=== PATIENT | male | born 1975 | race Caucasian/White ===

== ENCOUNTER 2017-07-15 18:47 | Emergency (ER) | payer OTHER ==
[~2017-07-15] VITALS: Ht 182.9 cm; Wt 83.9 kg
[~2017-07-15 18:47] MED LIST: ALLEGRA ALLERGY60 MG PO; BACTRIM DS TAB1 EACH PO; HYDROCODONE-AP1 EAC6 PO; MEDROLDOSEPACK PO; NAPROSYN500 MG PO; NOHOMEMEDICATIONS; NORCO 5-325 TA1 EACH PO
[2017-07-15 19:27] LABS: HEMATOCRIT 42.4 % (42.0-52.0); HEMOGLOBIN 14.3 gm/dL (14.0-18.0); MCH 29.4 pg (26.0-34.0); MCHC 33.6 g/dL (28.0-37.0); MCV 87.4 fL (80.0-100.0); MPV 7.6 fl. (7.2-11.1); NUCLEATED RBCS 0 /100WBC; PLATELET COUNT* 312 thou/uL (150-400); RBC 4.85 mil/uL (4.50-6.00); RDW-CV 13.2 % (10.5-14.5); WBC 10.4 thou/uL (4.0-11.0)
[2017-07-15 19:31] LABS: INFLUENZA B ANTIGEN None Detected (None Detect)
[2017-07-15 19:36] LABS: ANION GAP 12 mmol/L (7-16); BUN 10 mg/dL (7-18); CALCIUM 8.2 mg/dL (8.5-10.1); CHLORIDE 101 mmol/L (98-107); CO2 28 mmol/L (21-32); CREATININE 0.8 mg/dL (0.6-1.3); GLUCOSE 96 mg/dL (70-99); SODIUM 141 mmol/L (136-145)
[2017-07-15 19:37] LABS: POTASSIUM 2.9 mmol/L (3.5-5.1)
[2017-07-15 19:42] LABS: ALKALINE PHOSPHATASE 63 U/L (46-116); LIPASE 97 U/L (73-393); SGOT 23 U/L (15-37); SGPT 31 U/L (30-65); TOTAL BILIRUBIN 0.5 mg/dL (<0.1-1.0); TOTAL PROTEIN 7.2 g/dL (6.4-8.2); TROPONIN-I LEVEL <0.06 ng/mL (<0.06)
[2017-07-15 20:00] LABS: ABSOLUTE LYMPHOCYTES 0.8 thou/uL (0.8-5.3); ABSOLUTE MONOCYTES 0.4 thou/uL (0.0-1.2); ABSOLUTE NEUTROPHILS 9.2 thou/uL (1.6-8.1); ATYPICAL LYMPHS 2 %; PLATELET ESTIMATE ADEQUATE
[2017-07-15 20:36] LABS: URINE BILIRUBIN NEGATIVE (Negative); URINE BLOOD NEGATIVE (Negative); URINE CLARITY CLEAR; URINE COLOR YELLOW; URINE GLUCOSE-RANDOM NEGATIVE (Negative); URINE KETONES NEGATIVE (Negative); URINE LEUKOCYTES TRACE (Negative); URINE NITRITE NEGATIVE (Negative); URINE PROTEIN NEGATIVE (Negative); URINE UROBILINOGEN 0.2 E.U./dl (0.2-1.0)
[2017-07-15 20:43] LABS: BACTERIA None Seen /HPF (None Seen); CASTS None Seen /LPF (None Seen); CRYSTALS None Seen /LPF (None Seen); SQUAMOUS 0-3 Few /LPF (0-3); URINE RBC None Seen /HPF (0-2); URINE WBC 0-5 Rare /HPF (0-5)
[2017-07-15] MEDS ORDERED: TESSALON PERLE100 MG PO (20:53)
[2017-07-15] MEDS ORDERED: ZOFRAN ODT4 MG PO (20:53)
[2017-07-15] MEDS ORDERED: IBUPROFEN 800800 M1 PO (20:53)
[2017-07-15] MEDS ORDERED: VENTOLIN HFA 1818 GM INH (20:53)
[2017-07-15] MEDS ORDERED: POTASSIUM20 PO (20:53)
[2017-07-15 21:13] VITALS: BP 117/64
--- NOTE | 2017-07-16 12:11 | EKG ---
[place] [address] ELECTROCARDIOGRAM REPORT Name: WARREN MCDANIEL Room: [facility]#: [id number] Admission: 07/15/17 Attend Phys: Discharge: 07/15/17 Date of : 77 Report #: [id number] THIS REPORT FOR: //name// [facility] Test Date: 2017-07-15 Test Time: 19:13:23 Pat Name: WARREN MCDANIEL Department: Room: Gender: Clay Puddler: IMELDA Wu : 1975 Requested By: Daylin Villagomez Order Number: [id number] MD: Jose Eduardo Hair Measurements Intervals [place] Rate: 95 P: 46 [place]: 145 QRS: -8 QRSD: 103 T: 39 QT: 344 QTc: 433 Interpretive Statements Sinus rhythm Probable left atrial enlargement RSR' in V1 or V2, right VCD or RVH No previous ECG available for comparison Electronically Signed On 07-16-2017 12:11:35 TUB OPERATOR by Jose Eduardo Hair [email or web address] <ELECTRONICALLY SIGNED> By: Jose Eduardo Hair MD, [facility] 02/08/28 1210 12 12 Jose Eduardo Hair MD, FAC /EPI
== END 2017-07-15 21:14 | disposition home or self-care (01) ==
LOC: M.ERS 18:47
PROVIDERS: Physician Assistant
DX: K52.9 Noninfective gastroenteritis and colitis, unspecified (principal); J11.1 Influenza due to unidentified influenza virus with other respiratory manifestations; E86.0 Dehydration; E87.6 Hypokalemia; K21.9 Gastro-esophageal reflux disease without esophagitis; G43.909 Migraine, unspecified, not intractable, without status migrainosus; Z98.890 Other specified postprocedural states